=== PATIENT | female | born 1940 | race Caucasian/White ===

== ENCOUNTER → 2016-03-15 | Outpatient (CLI) | payer MEDICARE, OTHER ==
[~2016-03-15] MED LIST: ALLEGRA DPS180 MG PO; ASCORBIC ACID250 MG PO; ASPERCREME76.5 GM TP; BENICAR20 MG PO; CALCIUM 500 +1 EACH PO; CALCIUM600 MG PO; CALTRATE-600 W600 MG PO; CARBIDOPA-LEVO1 EAC6 PO; CATAPRES-DPS0.1 MG PO; COLACE-DPS100 MG PO; COZAAR DPS50 MG PO; ESTRACE DPS PO; ESTRACE0.5 MG PO; FEOSOL-DPS325 MG PO; FLEXERIL-DPS10 MG PO; HYDROCODONE 5MG/5 MG PO; KLOR-CON M2020 ME1 PO; LASIX DPS40 MG PO; LEVAQUIN DPS500 MG PO; LEXAPRO DPS20 MG PO; LOPRESSOR DPS50 MG PO; LOVENOX DP40 MG/0.4 SQ; MAALOX DPS30 ML PO; MEGARED OMEGA-1 EAC1 PO; MICRO-K DPS10 MEQ PO; MUCINEX600 MG PO; NEURONTIN DPS600 MG PO; NORVASC5 MG PO; OXY IR DPS5 MG PO; PAMELOR DPS25 MG PO; PEPCID DPS20 MG PO; PERCOCET 5 DPS1 TAB PO; PERCOCET 5-3251 EACH PO; PRILOSEC DPS20 MG PO; PRILOSEC20 MG PO; PRILOSEC40 MG PO; REQUIP DPS2 MG PO; REQUIP1 MG PO; SINEMET 25/1001 TAB PO; SURFAK DPS240 MG PO; SYNTHROID DP0.025 MG PO; SYNTHROID DP0.075 MG PO; SYNTHROID75 MCG PO; TAZTIA XT360 MG PO; THERAPEUTIC MUL1 TAB PO; TIAZAC180 MG PO; TYLENOL DPS325 MG PO; VANCOMYCIN HCL5 GM IV; VIACTIV SOFT C1 EACH PO; VITAMIN C250 MG PO; XARELTO20 MG PO
== END | disposition home or self-care (01) ==
LOC: RAD.S 14:27
DX: M25.552 Pain in left hip (principal); M54.9 Dorsalgia, unspecified; Z98.1 Arthrodesis status

== ENCOUNTER 2016-04-20 23:37 | Emergency (ER) | payer MEDICARE, OTHER ==
[~2016-04-20 23:37] MED LIST changes: -CALCIUM600 MG PO; -CARBIDOPA-LEVO1 EAC6 PO; -CATAPRES-DPS0.1 MG PO; -COLACE-DPS100 MG PO; -FLEXERIL-DPS10 MG PO; -KLOR-CON M2020 ME1 PO; -LOPRESSOR DPS50 MG PO; -LOVENOX DP40 MG/0.4 SQ; -MAALOX DPS30 ML PO; -NORVASC5 MG PO; -PEPCID DPS20 MG PO; -PERCOCET 5 DPS1 TAB PO; -SYNTHROID DP0.075 MG PO; -VANCOMYCIN HCL5 GM IV
--- NOTE | 2016-04-21 19:34 | ER ---
ADMIT: 04/20/2016 RM/LOC: ER [facility] MR#: [id number] [address] [id number] [address] [place] [id number] Emergency Room Report SEX: F AGE: 75 : 1940 DATE: 04/20/2016 The patient is a 75-year-old female, status post right total knee arthroplasty on March 18, discharged last Friday from [place] to home, was doing well until tonight when she had acute onset of pain without injury, fevers, chills, or significant swelling. States she has been using 1 Percocet every 3 to 4 hours. Exam remarkable for nontoxic, afebrile female with minimal effusion. X-ray, negative. Venous Doppler, negative for DVT. The patient was given Toradol, Dilaudid, Reglan. Road tested well with walker, home with advice to increase Percocet every 3 to 4 hours two tablets as needed. Follow up with Dr. Lomeli and Dr. Young next week. Pérez Sandhu MD/ marisela JOB #: [id number] CC: Eliot Ludwig MD, Attending Physician Caroline Young MD, Family Physician Caroline Young MD
[2016-08-13] MEDS ORDERED: ALLEGRA DPS180 MG PO (13:40)
[2016-08-13] MEDS ORDERED: LEXAPRO DPS20 MG PO (13:41)
[2016-08-13] MEDS ORDERED: KLOR-CON M2020 ME1 PO (13:41)
[2016-08-13] MEDS ORDERED: PAMELOR DPS25 MG PO (13:42)
[2016-08-13] MEDS ORDERED: REQUIP DPS2 MG PO ×3 (13:42→13:46)
[2016-08-13] MEDS ORDERED: SYNTHROID DP0.075 MG PO (13:43)
[2016-08-13] MEDS ORDERED: CARBIDOPA-LEVO1 EAC6 PO (13:43)
[2016-08-13] MEDS ORDERED: FLEXERIL-DPS10 MG PO (13:44)
[2016-08-13] MEDS ORDERED: COLACE-DPS100 MG PO (13:44)
[2016-08-13] MEDS ORDERED: CATAPRES-DPS0.1 MG PO (13:44)
[2016-08-13] MEDS ORDERED: MAALOX DPS30 ML PO (13:44)
[2016-08-13] MEDS ORDERED: NORVASC5 MG PO (13:45)
[2016-08-13] MEDS ORDERED: LOPRESSOR DPS50 MG PO (13:45)
[2016-08-13] MEDS ORDERED: CALCIUM600 MG PO (13:45)
[2016-08-13] MEDS ORDERED: LASIX DPS40 MG PO (13:45)
[2016-08-13] MEDS ORDERED: LOVENOX DP40 MG/0.4 SQ (13:46)
[2016-08-13] MEDS ORDERED: PEPCID DPS20 MG PO (13:46)
[2016-08-13] MEDS ORDERED: VANCOMYCIN HCL5 GM IV (13:47)
[2016-08-13] MEDS ORDERED: PERCOCET 5 DPS1 TAB PO (13:47)
[2016-08-13] MEDS ORDERED: TYLENOL DPS325 MG PO (13:48)
== END 2016-04-21 01:05 | disposition home or self-care (01) ==
LOC: ER 23:37
DX: G89.18 Other acute postprocedural pain (principal); M25.561 Pain in right knee; I10 Essential (primary) hypertension; Z86.718 Personal history of other venous thrombosis and embolism; Z79.01 Long term (current) use of anticoagulants; Z90.710 Acquired absence of both cervix and uterus; Z88.0 Allergy status to penicillin; Z88.2 Allergy status to sulfonamides; Z98.890 Other specified postprocedural states

== ENCOUNTER → 2016-05-03 | Outpatient (CLI) | payer MEDICARE, OTHER ==
[~2016-05-03] MED LIST changes: +CALCIUM600 MG PO; +CARBIDOPA-LEVO1 EAC6 PO; +CATAPRES-DPS0.1 MG PO; +COLACE-DPS100 MG PO; +FLEXERIL-DPS10 MG PO; +KLOR-CON M2020 ME1 PO; +LOPRESSOR DPS50 MG PO; +LOVENOX DP40 MG/0.4 SQ; +MAALOX DPS30 ML PO; +NORVASC5 MG PO; +PEPCID DPS20 MG PO; +PERCOCET 5 DPS1 TAB PO; +SYNTHROID DP0.075 MG PO; +VANCOMYCIN HCL5 GM IV
== END | disposition home or self-care (01) ==
LOC: RAD.S 10:53
DX: Z12.31 Encounter for screening mammogram for malignant neoplasm of breast (principal); R92.1 Mammographic calcification found on diagnostic imaging of breast

== ENCOUNTER 2016-06-13 10:14 | Day surgery (SDC) | payer MEDICARE, OTHER ==
[~2016-06-13] VITALS: Ht 157.5 cm; Wt 75.0 kg
[~2016-06-13 10:14] MED LIST changes: -CALCIUM600 MG PO; -CARBIDOPA-LEVO1 EAC6 PO; -CATAPRES-DPS0.1 MG PO; -COLACE-DPS100 MG PO; -FLEXERIL-DPS10 MG PO; -KLOR-CON M2020 ME1 PO; -LOPRESSOR DPS50 MG PO; -LOVENOX DP40 MG/0.4 SQ; -MAALOX DPS30 ML PO; -NORVASC5 MG PO; -PEPCID DPS20 MG PO; -PERCOCET 5 DPS1 TAB PO; -SYNTHROID DP0.075 MG PO; -VANCOMYCIN HCL5 GM IV
--- NOTE | 2016-06-14 08:12 | OR ---
ADMIT: 06/13/2016 RM/LOC: [facility] MR#: [id number] [facility] [place] [address] [address] [place] [address] Operative/Delivery Room Report SEX: F AGE: 75 : 1940 SURGERY DATE: 06/13/2016 SURGEON: Lucille Dickson MD DIRECTOR OF COMMUNITY EDUCATION: None. PREPROCEDURE DIAGNOSES: 1. Left sacroiliac joint dysfunction. 2. Left buttock pain. POSTPROCEDURE DIAGNOSES: 1. Left sacroiliac joint dysfunction. 2. Left buttock pain. PROCEDURE PERFORMED: Left sacroiliac joint injection. INDICATIONS FOR PROCEDURE: The patient is a pleasant female with history of chronic left-sided buttock pain secondary to above mentioned diagnoses, comes here for planned left-sided SI joint injection. ANESTHESIA: Local without sedation. ESTIMATED BLOOD LOSS: Zero. COMPLICATIONS: None immediately evident. DESCRIPTION OF PROCEDURE: After the patient was seen in the preoperative area, vitals signs were taken. Prior to the procedure, the risks, benefits, and alternative therapies were discussed at length. Patient consent was obtained and updated. The patient was taken to the fluoroscopy suite and placed on the fluoroscopy table in the prone position. Pressure points were padded to comfort, monitors applied, and a timeout performed. C-arm was brought in to identify the left SI joint. Lidocaine plain 1%, approximately 2 mL, was used to anesthetize the skin and underlying ADMIT: 06/13/2016 RM/LOC: [facility] MR#: [id number] [address] [place] [id number] [address] [place] [address] Operative/Delivery Room Report SEX: F AGE: 75 : 1940 subcutaneous tissue. A 3.5-inch 22-gauge curved-tip needle was then advanced through the anesthetized skin and placed inside the inferior portion of the SI joint. Isovue-300 was injected into the SI joint and showed good spread into the SI joint. After correct placement was confirmed, 5 mL of 0.25% Marcaine and 80 mg of methylprednisolone were injected. The patient tolerated the procedure well without any complications. The patient was then brought to PACU where she recovered nicely. PLAN: The patient was examined after 20 minutes and had 80% reduction of pain. Discharge instructions were given, followup scheduled. The patient was discharged home with a pick up driver. Lucille Dickson MD/ marisela JOB #: [id number] CC: Lucille Dickson, Attending Physician Caroline Young, Family Physician
[2016-08-13] MEDS ORDERED: ALLEGRA DPS180 MG PO (13:40)
[2016-08-13] MEDS ORDERED: LEXAPRO DPS20 MG PO (13:41)
[2016-08-13] MEDS ORDERED: KLOR-CON M2020 ME1 PO (13:41)
[2016-08-13] MEDS ORDERED: REQUIP DPS2 MG PO ×3 (13:42→13:46)
[2016-08-13] MEDS ORDERED: PAMELOR DPS25 MG PO (13:42)
[2016-08-13] MEDS ORDERED: SYNTHROID DP0.075 MG PO (13:43)
[2016-08-13] MEDS ORDERED: CARBIDOPA-LEVO1 EAC6 PO (13:43)
[2016-08-13] MEDS ORDERED: CATAPRES-DPS0.1 MG PO (13:44)
[2016-08-13] MEDS ORDERED: MAALOX DPS30 ML PO (13:44)
[2016-08-13] MEDS ORDERED: FLEXERIL-DPS10 MG PO (13:44)
[2016-08-13] MEDS ORDERED: COLACE-DPS100 MG PO (13:44)
[2016-08-13] MEDS ORDERED: NORVASC5 MG PO (13:45)
[2016-08-13] MEDS ORDERED: LASIX DPS40 MG PO (13:45)
[2016-08-13] MEDS ORDERED: LOPRESSOR DPS50 MG PO (13:45)
[2016-08-13] MEDS ORDERED: CALCIUM600 MG PO (13:45)
[2016-08-13] MEDS ORDERED: PEPCID DPS20 MG PO (13:46)
[2016-08-13] MEDS ORDERED: LOVENOX DP40 MG/0.4 SQ (13:46)
[2016-08-13] MEDS ORDERED: VANCOMYCIN HCL5 GM IV (13:47)
[2016-08-13] MEDS ORDERED: PERCOCET 5 DPS1 TAB PO (13:47)
[2016-08-13] MEDS ORDERED: TYLENOL DPS325 MG PO (13:48)
== END 2016-06-13 12:40 | disposition home or self-care (01) ==
LOC: SSS 10:14
PROC: 3E0R3BZ Introduction of Anesthetic Agent into Spinal Canal, Percutaneous Approach (ICD-10-PCS; principal; 2016-06-13)
PROC: 3E0R33Z Introduction of Anti-inflammatory into Spinal Canal, Percutaneous Approach (ICD-10-PCS; principal; 2016-06-13)
DX: G89.29 Other chronic pain (principal); M53.3 Sacrococcygeal disorders, not elsewhere classified; M96.1 Postlaminectomy syndrome, not elsewhere classified; I82.409 Acute embolism and thrombosis of unspecified deep veins of unspecified lower extremity; M51.36 Other intervertebral disc degeneration, lumbar region; M54.16 Radiculopathy, lumbar region; G25.81 Restless legs syndrome; Z87.891 Personal history of nicotine dependence; Z90.49 Acquired absence of other specified parts of digestive tract; Z90.710 Acquired absence of both cervix and uterus; Z98.890 Other specified postprocedural states; Z88.0 Allergy status to penicillin; Z88.2 Allergy status to sulfonamides